=== PATIENT | female | born 1995 | race Hispanic/Latino ===

== ENCOUNTER 2017-11-24 12:27 | Emergency (ER) | payer MEDICAID, OTHER ==
[2017-11-24 13:22] LABS: BASOPHILS % (AUTO) 0.2 % (0.0-5.0); EOSINOPHILS % (AUTO) 6.7 % (0.0-8.0); LYMPHOCYTES % (AUTO) 22.4 % (21.0-51.0); MEAN CORPUSCULAR HEMOGLOBIN 28.7 pg (27.0-33.0); MEAN CORPUSCULAR HGB CONC 34.4 g/dL (32.0-36.0); MEAN CORPUSCULAR VOLUME 83.4 fL (80-100); MONOCYTES % (AUTO) 4.7 % (3.0-13.0); PLATELET COUNT (AUTO) 352 K/uL (130-400); RED BLOOD CELL COUNT(AUTO) 4.44 MIL/uL (4.00-5.50); RED CELL DISTRIBUTION WIDTH 13.8 % (11.0-15.5); WHITE BLOOD COUNT (AUTO) 7.9 K/uL (4.8-10.8)
[2017-11-24 13:29] LABS: CREATININE 0.6 mg/dL (0.5-1.5); POTASSIUM 3.7 mmol/L (3.5-5.1)
[2017-11-24 14:08] LABS: APPEARANCE,URINE Clear (CLEAR); BILIRUBIN,URINE Negative (NEGATIVE); COLOR,URINE Yellow (YELLOW); GLUCOSE, URINE (UA) Negative (NEGATIVE); KETONES,URINE Negative (NEGATIVE); LEUKOCYTE ESTERASE ,URINE Small (NEGATIVE); NITRATE,URINE Negative (NEGATIVE); OCCULT BLOOD,URINE Large (NEGATIVE); PROTEIN,URINE Negative (NEGATIVE)
[2017-11-24 14:20] LABS: BACTERIA,URINE Rare /HPF (None Seen); RENAL EPITHELIAL CELLS,URINE Few /HPF (None Seen); TRANSITIONAL EPI CELLS,URINE Few /HPF (None Seen); WBC,URINE 0-1 /HPF (0-1)
== END 2017-11-24 15:33 | disposition home or self-care (01) ==
LOC: EDH 12:27
DX: O02.0 Blighted ovum and nonhydatidiform mole (principal); Z3A.01 Less than 8 weeks gestation of pregnancy; Z87.891 Personal history of nicotine dependence
CPT/HCPCS: 36415; 76801; 80048; 81001; 84702; 85025; 86900; 86901

== ENCOUNTER 2017-11-27 05:35 | Emergency (ER) | payer MEDICAID, OTHER ==
[2017-11-27] MEDS ORDERED: ACETAMINOPHEN EXTRA STRENGTH 500 MG TABLET ONE (06:27)
[2017-11-27 07:10] LABS: BASOPHILS % (AUTO) 0.1 % (0.0-5.0); EOSINOPHILS % (AUTO) 1.4 % (0.0-8.0); HEMATOCRIT 36.6 % (36-48); LYMPHOCYTES % (AUTO) 4.3 % (21.0-51.0); MEAN CORPUSCULAR HEMOGLOBIN 28.2 pg (27.0-33.0); MEAN CORPUSCULAR HGB CONC 33.8 g/dL (32.0-36.0); MEAN CORPUSCULAR VOLUME 83.4 fL (80-100); MONOCYTES % (AUTO) 3.5 % (3.0-13.0); NEUTROPHILS % (AUTO) 90.7 % (40.0-77.0); PLATELET COUNT (AUTO) 344 K/uL (130-400); RED BLOOD CELL COUNT(AUTO) 4.39 MIL/uL (4.00-5.50); RED CELL DISTRIBUTION WIDTH 13.7 % (11.0-15.5); WHITE BLOOD COUNT (AUTO) 12.7 K/uL (4.8-10.8)
[2017-11-27 07:23] LABS: APPEARANCE,URINE CLEAR (CLEAR); BILIRUBIN,URINE NEGATIVE (NEGATIVE); COLOR,URINE YELLOW (YELLOW); GLUCOSE, URINE (UA) NEGATIVE (NEGATIVE); KETONES,URINE NEGATIVE (NEGATIVE); LEUKOCYTE ESTERASE ,URINE NEGATIVE (NEGATIVE); NITRATE,URINE NEGATIVE (NEGATIVE); OCCULT BLOOD,URINE LARGE (NEGATIVE); PH,URINE >=9.0 (5.0-8.0); PROTEIN,URINE TRACE (NEGATIVE)
[2017-11-27 08:05] LABS: BACTERIA,URINE Rare /HPF (None Seen); SQUAMOUS EPITHELIAL CELL,UR Rare /HPF (0-2); WBC,URINE 0-1 /HPF (0-1)
== END 2017-11-27 08:30 | disposition home or self-care (01) ==
LOC: EDH 05:35
DX: O03.9 Complete or unspecified spontaneous abortion without complication (principal); M54.5 Low back pain; Z3A.01 Less than 8 weeks gestation of pregnancy
CPT/HCPCS: 36415; 76801; 81001; 84702; 85025

== ENCOUNTER 2018-02-23 21:59 | Emergency (ER) | payer MEDICAID, OTHER ==
[2018-02-23] MEDS ORDERED: LIDOCAINE HCL-MPF 1% 2ML VIAL ONE (22:41)
[2018-02-23] MEDS ORDERED: DEXAMETHASONE SOD PHOSPHATE 10MG/ML 1ML VIAL ONE (22:41)
[2018-02-23] MEDS ORDERED: CEFTRIAXONE SODIUM 1 GM ONE (22:42)
[2018-02-23 23:03] LABS: APPEARANCE,URINE Turbid (CLEAR); BILIRUBIN,URINE Small (NEGATIVE); COLOR,URINE Dark Yellow (YELLOW); GLUCOSE, URINE (UA) Negative (NEGATIVE); KETONES,URINE 15 mg/dL (NEGATIVE); LEUKOCYTE ESTERASE ,URINE Large (NEGATIVE); NITRATE,URINE Negative (NEGATIVE); OCCULT BLOOD,URINE Trace (NEGATIVE); PROTEIN,URINE POS 2+ (NEGATIVE)
[2018-02-23 23:05] LABS: HCG,QUAL RESULT NEGATIVE (NEGATIVE)
[2018-02-23 23:11] LABS: BACTERIA,URINE Moderate /HPF (None Seen); MUCUS,URINE Few LPF (None Seen); SQUAMOUS EPITHELIAL CELL,UR Few /HPF (0-2); WBC,URINE TNTC /HPF (0-1)
== END 2018-02-23 23:32 | disposition home or self-care (01) ==
LOC: EDH 21:59
DX: J02.0 Streptococcal pharyngitis (principal); N39.0 Urinary tract infection, site not specified; R50.81 Fever presenting with conditions classified elsewhere
CPT/HCPCS: 81001; 81025; 96372 ×2; 99284; J0696; J1100; J3490

== ENCOUNTER 2019-05-24 03:50 | Inpatient (IN) | payer MEDICAID | END 2019-05-25 16:45 | disposition home or self-care (01) | LOC: EDH 03:50 → LDH 04:13 → WSH 15:35 ==

== ENCOUNTER 2020-07-20 14:44 | Emergency (ER) | payer MEDICAID ==
[2020-07-20 15:16] LABS: BASOPHILS % (AUTO) 0.4 % (0.0-5.0); EOSINOPHILS % (AUTO) 5.4 % (0.0-8.0); HEMATOCRIT 39.3 % (36-48); LYMPHOCYTES % (AUTO) 30.2 % (21.0-51.0); MEAN CORPUSCULAR HEMOGLOBIN 28.2 pg (27.0-33.0); MEAN CORPUSCULAR HGB CONC 33.3 g/dL (32.0-36.0); MEAN CORPUSCULAR VOLUME 84.5 fL (79-99); MONOCYTES % (AUTO) 5.2 % (3.0-13.0); NEUTROPHILS % (AUTO) 58.7 % (40.0-77.0); PLATELET COUNT (AUTO) 365 K/uL (130-400); RED BLOOD CELL COUNT(AUTO) 4.65 MIL/uL (4.00-5.50); RED CELL DISTRIBUTION WIDTH 12.6 % (11.0-15.5); WHITE BLOOD COUNT (AUTO) 7.6 K/uL (4.8-10.8)
[2020-07-20 15:22] LABS: APPEARANCE,URINE Clear (CLEAR); BILIRUBIN,URINE Negative (NEGATIVE); COLOR,URINE Yellow (YELLOW); GLUCOSE, URINE (UA) Negative (NEGATIVE); KETONES,URINE Negative (NEGATIVE); LEUKOCYTE ESTERASE ,URINE Negative (NEGATIVE); NITRATE,URINE Negative (NEGATIVE); OCCULT BLOOD,URINE Negative (NEGATIVE); PH,URINE 5.5 (5.0-8.0); PROTEIN,URINE Negative (NEGATIVE)
[2020-07-20 15:24] LABS: HCG,QUAL RESULT NEGATIVE (NEGATIVE)
[2020-07-20 15:24] LABS: CREATININE 0.7 mg/dL (0.5-1.5); POTASSIUM 3.2 mmol/L (3.5-5.1)
[2020-07-20 15:25] LABS: INR 0.88 (0.85-1.15); PARTIAL THROMBOPLASTIN TIME 29.1 SEC (26.3-35.5); PROTHROMBIN TIME 9.5 SEC (9.6-11.6)
[2020-07-20 15:27] LABS: AMPHET/METH SCREEN,URINE NEGATIVE (NEGATIVE); BARBITURATE SCREEN, URINE NEGATIVE (NEGATIVE); BENZODIAZEPINES SCREEN,URINE NEGATIVE (NEGATIVE); CANNABINOID SCREEN,URINE NEGATIVE (NEGATIVE); COCAINE SCREEN,URINE NEGATIVE (NEGATIVE); OPIATE SCREEN,URINE NEGATIVE (NEGATIVE); PHENCYCLIDINE SCREEN,URINE NEGATIVE (NEGATIVE)
[2020-07-20 15:29] LABS: ALBUMIN 3.7 g/dL (3.5-5.0); BILIRUBIN,TOTAL 0.2 mg/dL (0.2-1.0); TOTAL PROTEIN, SERUM 7.8 g/dL (6.0-8.3)
[2020-07-20] MEDS ORDERED: ALPRAZOLAM 0.25 MG TABLET ONE (16:00)
[2020-07-20] MEDS ORDERED: ASPIRIN 325 MG TABLET ONE (16:04)
== END 2020-07-20 16:38 | disposition home or self-care (01) ==
LOC: EDH 14:44
DX: F41.9 Anxiety disorder, unspecified (principal); R07.89 Other chest pain; Z87.891 Personal history of nicotine dependence
CPT/HCPCS: 36415; 71045; 80053; 80305; 81003; 81025; 84484; 85025; 85610; 85730; 93005

== ENCOUNTER 2020-08-06 10:18 | Inpatient (IN) | payer MEDICAID ==
[~2020-08-06] VITALS: Ht 157.5 cm; Wt 74.8 kg
[2020-08-06] MEDS ORDERED: AMPICILLIN SODIUM/SULBACTAM NA 1.5GM VIAL ONE (11:00)
[2020-08-06 11:13] LABS: BASOPHILS % (AUTO) 0.5 % (0.0-5.0); HEMATOCRIT 40.1 % (36-48); LYMPHOCYTES % (AUTO) 25.1 % (21.0-51.0); MEAN CORPUSCULAR HEMOGLOBIN 28.6 pg (27.0-33.0); MEAN CORPUSCULAR HGB CONC 33.7 g/dL (32.0-36.0); MONOCYTES % (AUTO) 4.6 % (3.0-13.0); NEUTROPHILS % (AUTO) 63.6 % (40.0-77.0); PLATELET COUNT (AUTO) 353 K/uL (130-400); RED BLOOD CELL COUNT(AUTO) 4.72 MIL/uL (4.00-5.50); RED CELL DISTRIBUTION WIDTH 12.5 % (11.0-15.5); WHITE BLOOD COUNT (AUTO) 8.2 K/uL (4.8-10.8)
[2020-08-06 11:26] LABS: CREATININE 0.7 mg/dL (0.5-1.5); POTASSIUM 3.7 mmol/L (3.5-5.1)
[2020-08-06 12:48] LABS: ERYTHROCYTE SEDIMENTATION RATE 27 MM/HR (0-20)
[2020-08-06] MEDS ORDERED: ACETAMINOPHEN 325 MG TAB PO PRN (13:15)
[2020-08-06] MEDS ORDERED: ZOSYN 3.375GM+NS 50ML 50 ML IV ONE (13:53)
[2020-08-06] MEDS ORDERED: HYDROCODONE/ACETAMINOPHEN 10/325 MG TAB ONE (16:20)
[2020-08-06 16:48] LABS: APPEARANCE,URINE Clear (CLEAR); BILIRUBIN,URINE Negative (NEGATIVE); COLOR,URINE Yellow (YELLOW); GLUCOSE, URINE (UA) Negative (NEGATIVE); KETONES,URINE Negative (NEGATIVE); LEUKOCYTE ESTERASE ,URINE Negative (NEGATIVE); NITRATE,URINE Negative (NEGATIVE); OCCULT BLOOD,URINE Negative (NEGATIVE); PROTEIN,URINE Negative (NEGATIVE)
[2020-08-06 16:52] LABS: HCG,QUAL RESULT NEGATIVE (NEGATIVE)
[2020-08-06] MEDS: ZOSYN 3.375GM+NS 50ML 50 ML IV SCH ×2 (17:00→20:56)
--- NOTE | 2020-08-06 17:00 | NUR ---
REPORT RECEIVED FROM DONNIE DALE NURSE AND PATIENT CARE TRANSFEREED AT THIS TIME. PATIENT STABLE.
[2020-08-06 17:14] VITALS: BP 115/81
[2020-08-06] MEDS ORDERED: NORE-109 PO (20:14)
[2020-08-06 20:20] VITALS: BP 119/84
[2020-08-06] MEDS: ONDANSETRON HCL 4 MG/2 ML VIAL IV PRN (20:55)
[2020-08-06] MEDS: FAMOTIDINE 20MG TAB 20 MG TAB PO SCH (20:56)
[2020-08-06] MEDS: DEXTROSE 5%-LACTATED RINGERS 1,000 ML IV SCH (23:15)
[2020-08-07] VITALS (7 sets, daily range): BP systolic 98–121; BP diastolic 59–77
--- NOTE | 2020-08-07 00:10 | NUR ---
PT INSTRUCTED OF NPO STATUS, ACKNOWLEDGES UNDERSTANDING Addendum: 08/07/20 at 0219 by THOMAS WALKER LVN Amended: Links added.
[2020-08-07 04:55] LABS: BASOPHILS % (AUTO) 0.5 % (0.0-5.0); EOSINOPHILS % (AUTO) 6.2 % (0.0-8.0); LYMPHOCYTES % (AUTO) 35.5 % (21.0-51.0); MEAN CORPUSCULAR HEMOGLOBIN 28.3 pg (27.0-33.0); MEAN CORPUSCULAR HGB CONC 33.4 g/dL (32.0-36.0); MEAN CORPUSCULAR VOLUME 84.7 fL (79-99); MONOCYTES % (AUTO) 4.8 % (3.0-13.0); NEUTROPHILS % (AUTO) 52.7 % (40.0-77.0); PLATELET COUNT (AUTO) 312 K/uL (130-400); RED BLOOD CELL COUNT(AUTO) 4.13 MIL/uL (4.00-5.50); RED CELL DISTRIBUTION WIDTH 12.4 % (11.0-15.5); WHITE BLOOD COUNT (AUTO) 6.3 K/uL (4.8-10.8)
[2020-08-07 05:15] LABS: INR 0.9 (0.85-1.15); PROTHROMBIN TIME 9.8 SEC (9.6-11.6)
[2020-08-07 05:19] LABS: ALBUMIN 3.1 g/dL (3.5-5.0); BILIRUBIN,TOTAL 0.4 mg/dL (0.2-1.0); CREATININE 0.7 mg/dL (0.5-1.5); CRP QUANTITATIVE 23.7 mg/L (0.00-9.0); POTASSIUM 3.5 mmol/L (3.5-5.1); TOTAL PROTEIN, SERUM 6.5 g/dL (6.0-8.3)
[2020-08-07] MEDS: ZOSYN 3.375GM+NS 50ML 50 ML IV SCH ×3 (05:45→19:52)
--- NOTE | 2020-08-07 06:40 | NUR ---
TRANSFER REPORT GIVEN TO SUKHDEV LEWIS RN, PT TRANSFERED VIA W/C BY TERESITA MARVIN INCOME TAX PREPARER, PT ALERT ORIENTED, NO CONCERNS VOICED Addendum: 08/07/20 at 0724 by THOMAS WALKER LVN Amended: Links added.
--- NOTE | 2020-08-07 07:30 | NUR ---
SUICIDE RISK ASSESSMENT ASKED PATIENT ABOUT HX OF SUICIDAL THOUGHTS AND POSSIBLE CURRENT SUICIDAL IDEATION. PATIENT STATED "THAT [HISTORY OF SUICIDAL THOUGHTS] WAS WHEN I WAS IN HIGH SCHOOL, BUT NOT ANYMORE." PATIENT WAS SMILING SHE SPOKE TO ME. I RESPONDED AND CLARIFIED "SO, YOU HAVE HAD NO RECENT THOUGHTS OF WANTING TO COMMIT SUICIDE OR HURT YOURSELF?" AND PATIENT REPLIED "NO I HAVEN'T."
[2020-08-07] MEDS: FAMOTIDINE 20MG TAB 20 MG TAB PO SCH ×2 (09:00→19:52)
[2020-08-07] MEDS: HYDROCODONE/ACETAMINOPHEN 5/325 MG TAB PO PRN ×2 (11:02→19:52)
[2020-08-07] MEDS: DEXTROSE 5%-LACTATED RINGERS 1,000 ML IV SCH (15:37)
--- NOTE | 2020-08-07 17:50 | NUR ---
MET WITH PATIENT AT BEDSIDE FOR DC PLANNING. STATES LIVES WITH BOYFRIEND AND CHILDREN, IS A STUDENT AT THIS [employer], IS INDEPENDENT, DRIVES, NO DME OR SERVICES. STATES SHE DOES NOT THINK SHE HAD THE INSURANCE THAT IS LISTED FOR HER AND DOES NOT HAVE A PCP AT THIS TIME STATES LAST TIME SHE SAW AN MD WAS POST CHECK UP . BABY IS 14 MONTHS OLD. DC PLAN IS HOME WITH FAMILY , BERONICA ROTH TO PROVIDE TRANSPORT Addendum: 08/07/20 at 5844 by WILIAM HANSON RN CM Amended: Links added.
[2020-08-07] MEDS: LACTULOSE 20 GM/30 ML UDCUP PO PRN (19:55)
[2020-08-08] VITALS (30 sets, daily range): BP systolic 95–150; BP diastolic 53–94
[2020-08-08] MEDS: ZOSYN 3.375GM+NS 50ML 50 ML IV SCH ×3 (04:41→21:27)
[2020-08-08] MEDS: DEXTROSE 5%-LACTATED RINGERS 1,000 ML IV SCH ×2 (05:30→09:25)
[2020-08-08 05:51] LABS: BASOPHILS % (AUTO) 0.3 % (0.0-5.0); EOSINOPHILS % (AUTO) 5.7 % (0.0-8.0); HEMATOCRIT 36.3 % (36-48); LYMPHOCYTES % (AUTO) 41.1 % (21.0-51.0); MEAN CORPUSCULAR HEMOGLOBIN 28.1 pg (27.0-33.0); MEAN CORPUSCULAR HGB CONC 33.1 g/dL (32.0-36.0); MONOCYTES % (AUTO) 6.4 % (3.0-13.0); NEUTROPHILS % (AUTO) 46.3 % (40.0-77.0); PLATELET COUNT (AUTO) 316 K/uL (130-400); RED BLOOD CELL COUNT(AUTO) 4.27 MIL/uL (4.00-5.50); RED CELL DISTRIBUTION WIDTH 12.3 % (11.0-15.5); WHITE BLOOD COUNT (AUTO) 5.8 K/uL (4.8-10.8)
[2020-08-08 06:04] LABS: BILIRUBIN,TOTAL 0.3 mg/dL (0.2-1.0); CREATININE 0.7 mg/dL (0.5-1.5); POTASSIUM 3.5 mmol/L (3.5-5.1); TOTAL PROTEIN, SERUM 6.5 g/dL (6.0-8.3)
[2020-08-08] MEDS: FAMOTIDINE 20MG TAB 20 MG TAB PO SCH ×2 (08:40→21:27)
[2020-08-08] MEDS ORDERED: SUCCINYLCHOLINE 200MG/10ML SYR ONE (10:11)
[2020-08-08] MEDS ORDERED: MIDAZOLAM HCL 1 MG/ML 2ML VIAL ONE (10:11)
[2020-08-08] MEDS ORDERED: PROPOFOL 10 MG/ML 20ML VIAL IV ONE (10:11)
[2020-08-08] MEDS ORDERED: LIDOCAINE PF 2% 5ML ABBOJECT ONE (10:11)
[2020-08-08] MEDS ORDERED: ROCURONIUM 10MG/1ML SYR 10 MG/ML ML ONE (10:12)
[2020-08-08] MEDS ORDERED: DEXAMETHASONE SOD PHOSPHATE 4 MG/ML 1ML VIAL ONE (10:21)
[2020-08-08] MEDS ORDERED: ONDANSETRON HCL 4 MG/2 ML VIAL ONE (10:22)
[2020-08-08] MEDS ORDERED: NEOMY SULF/POLYMYXIN B SULFATE 1 ML AMPUL IR ONE (10:26)
[2020-08-08] MEDS ORDERED: FENTANYL CITRATE PF 50 MCG/1 ML 2ML VIAL ONE (10:28)
[2020-08-08] MEDS ORDERED: BUPIVACAINE/PF 0.25% 30ML VIAL IJ ONE (10:38)
[2020-08-08] MEDS ORDERED: MEPERIDINE-PF 25 MG/ML SYG ONE ×2 (11:14→11:25)
--- NOTE | 2020-08-08 11:40 | NUR ---
PT CONTINUES TO C/O PAIN TO LT INDEX FINGER, [employer] CONTROL WORKER AT BEDSIDE, NERVE BLOCK OFFERED TO PT, PROCEDURE EXPLAINED. AT THIS TIME PT DOES NOT WISH TO HAVE THE BLOCK DONE. EXPLAINED THAT IF SHE DECIDED TO DO BLOCK, WE WOULD HAVE TO CALL FOR CONSENT PT HAS HAD ANESTHESIA TODAY. PT CONT TO STATE THAT SHE DOES NOT WANT BLOCK AT THIS TIME
[2020-08-08] MEDS ORDERED: KETOROLAC TROMETHAMINE 30MG/ML ONE ×2 (11:51→14:39)
[2020-08-08] MEDS ORDERED: KETOROLAC TROMETHAMINE 15MG/ML IV PRN (12:45)
[2020-08-08] MEDS: MORPHINE SULFATE 2 MG/ML 1ML SYG IVP PRN ×3 (12:50→21:38)
[2020-08-08] MEDS: KETOROLAC TROMETHAMINE 30MG/ML IV PRN (14:56)
--- NOTE | 2020-08-08 20:15 | NUR ---
Patient desires to take a bath; Needs provided Left Index finger dressing intact was covered to keep it dry. Plan of care discussed with patient will transfer to [phone] from [phone]. Patient verbalizes understanding.
[2020-08-08] MEDS: LACTULOSE 20 GM/30 ML UDCUP PO PRN (21:35)
[2020-08-09] MEDS: DEXTROSE 5%-LACTATED RINGERS 1,000 ML IV SCH (01:51)
[2020-08-09 04:14] VITALS: BP 119/66
[2020-08-09] MEDS: KETOROLAC TROMETHAMINE 30MG/ML IV PRN ×2 (04:21→12:03)
[2020-08-09] MEDS: ZOSYN 3.375GM+NS 50ML 50 ML IV SCH ×3 (04:31→20:44)
[2020-08-09 05:32] LABS: BASOPHILS % (AUTO) 0.2 % (0.0-5.0); EOSINOPHILS % (AUTO) 0.7 % (0.0-8.0); HEMATOCRIT 33.8 % (36-48); LYMPHOCYTES % (AUTO) 24.7 % (21.0-51.0); MEAN CORPUSCULAR HEMOGLOBIN 28.2 pg (27.0-33.0); MEAN CORPUSCULAR HGB CONC 33.1 g/dL (32.0-36.0); MEAN CORPUSCULAR VOLUME 85.1 fL (79-99); MONOCYTES % (AUTO) 5.9 % (3.0-13.0); NEUTROPHILS % (AUTO) 68.3 % (40.0-77.0); PLATELET COUNT (AUTO) 321 K/uL (130-400); RED BLOOD CELL COUNT(AUTO) 3.97 MIL/uL (4.00-5.50); RED CELL DISTRIBUTION WIDTH 12.1 % (11.0-15.5); WHITE BLOOD COUNT (AUTO) 8.1 K/uL (4.8-10.8)
[2020-08-09 05:53] LABS: ALBUMIN 2.9 g/dL (3.5-5.0); BILIRUBIN,TOTAL 0.2 mg/dL (0.2-1.0); CREATININE 0.7 mg/dL (0.5-1.5); POTASSIUM 3.5 mmol/L (3.5-5.1); TOTAL PROTEIN, SERUM 6.4 g/dL (6.0-8.3)
[2020-08-09 07:47] VITALS: BP 131/59
[2020-08-09] MEDS: TRAMADOL HCL 50 MG TABLET PO PRN ×2 (09:31→16:56)
[2020-08-09] MEDS: FAMOTIDINE 20MG TAB 20 MG TAB PO SCH ×2 (09:32→20:44)
[2020-08-09 12:05] VITALS: BP 135/80
[2020-08-09 16:26] VITALS: BP 133/76
[2020-08-09] MEDS: MORPHINE SULFATE 2 MG/ML 1ML SYG IVP PRN (17:43)
[2020-08-09 20:06] VITALS: BP 146/83
[2020-08-09] MEDS: HYDROMORPHONE HCL 0.5 MG/0.5 ML ML IVP PRN (20:46)
[2020-08-09 23:51] VITALS: BP 129/74
[2020-08-10] VITALS (24 sets, daily range): BP systolic 110–139; BP diastolic 67–90
[2020-08-10] MEDS: KETOROLAC TROMETHAMINE 30MG/ML IV PRN ×3 (01:03→19:00)
[2020-08-10] MEDS: ZOSYN 3.375GM+NS 50ML 50 ML IV SCH ×3 (05:23→20:43)
[2020-08-10] MEDS: HYDROMORPHONE HCL 0.5 MG/0.5 ML ML IVP PRN ×3 (05:30→20:16)
[2020-08-10] MEDS: ONDANSETRON HCL 4 MG/2 ML VIAL IV PRN (06:21)
[2020-08-10 06:34] LABS: BASOPHILS % (AUTO) 0.4 % (0.0-5.0); EOSINOPHILS % (AUTO) 6.1 % (0.0-8.0); HEMATOCRIT 34.6 % (36-48); LYMPHOCYTES % (AUTO) 42.2 % (21.0-51.0); MEAN CORPUSCULAR HEMOGLOBIN 27.8 pg (27.0-33.0); MEAN CORPUSCULAR HGB CONC 32.7 g/dL (32.0-36.0); MONOCYTES % (AUTO) 5.7 % (3.0-13.0); NEUTROPHILS % (AUTO) 45.5 % (40.0-77.0); PLATELET COUNT (AUTO) 287 K/uL (130-400); RED BLOOD CELL COUNT(AUTO) 4.07 MIL/uL (4.00-5.50); RED CELL DISTRIBUTION WIDTH 12.4 % (11.0-15.5); WHITE BLOOD COUNT (AUTO) 7.3 K/uL (4.8-10.8)
[2020-08-10 06:46] LABS: CREATININE 0.8 mg/dL (0.5-1.5); POTASSIUM 3.5 mmol/L (3.5-5.1)
[2020-08-10] MEDS: FAMOTIDINE 20MG TAB 20 MG TAB PO SCH ×2 (09:00→20:15)
[2020-08-10] MEDS: DEXTROSE 5%-LACTATED RINGERS 1,000 ML IV SCH (10:18)
[2020-08-10] MEDS ORDERED: LACTATED RINGERS 1000ML 1,000 ML IV ONE (13:49)
[2020-08-10] MEDS ORDERED: NEOMY SULF/POLYMYXIN B SULFATE 1 ML AMPUL IR ONE (14:18)
[2020-08-10] MEDS ORDERED: BUPIVACAINE/PF 0.25% 30ML VIAL IJ ONE (14:18)
[2020-08-10] MEDS ORDERED: FENTANYL CITRATE PF 50 MCG/1 ML 2ML VIAL ONE (14:23)
[2020-08-10] MEDS ORDERED: PROPOFOL 10 MG/ML 20ML VIAL IV ONE (14:23)
[2020-08-10] MEDS ORDERED: MIDAZOLAM HCL 1 MG/ML 2ML VIAL ONE (14:23)
[2020-08-10] MEDS ORDERED: LIDOCAINE PF 2% 5ML ABBOJECT ONE (14:23)
[2020-08-10] MEDS ORDERED: ONDANSETRON HCL 4 MG/2 ML VIAL ONE (15:20)
[2020-08-10] MEDS ORDERED: DEXAMETHASONE SOD PHOSPHATE 4 MG/ML 1ML VIAL ONE (15:20)
[2020-08-10] MEDS ORDERED: KETOROLAC TROMETHAMINE 30MG/ML ONE (15:29)
[2020-08-10] MEDS ORDERED: MEPERIDINE-PF 25 MG/ML SYG ONE ×2 (15:53→16:08)
--- NOTE | 2020-08-10 16:50 | NUR ---
PROCEDURE REPORT RECEIVED FROM DONNIE SIDHU (PACU). PATIENT S/P DEBRIDEMENT AND CLOSURE TO LEFT INDEX FINGER BY DR. BETTENCOURT UNDER GENERAL ANESTHESIA. DRESSING DRY AND INTACT. PATIENT STABLE AT THIS TIME.
[2020-08-10] MEDS: LACTULOSE 20 GM/30 ML UDCUP PO PRN (20:15)
[2020-08-11] VITALS: BP 105/54
[2020-08-11] MEDS: DEXTROSE 5%-LACTATED RINGERS 1,000 ML IV SCH (00:05)
[2020-08-11] MEDS: KETOROLAC TROMETHAMINE 30MG/ML IV PRN ×2 (03:55→09:36)
[2020-08-11 04:00] VITALS: BP 112/67
[2020-08-11] MEDS: ZOSYN 3.375GM+NS 50ML 50 ML IV SCH (05:50)
[2020-08-11 08:00] VITALS: BP 126/73
[2020-08-11] MEDS ORDERED: FAMO20TA8 PO (08:11)
[2020-08-11] MEDS ORDERED: AMOX-429 PO (08:11)
[2020-08-11] MEDS ORDERED: IBUP-2077 PO (08:11)
[2020-08-11 08:52] LABS: BASOPHILS % (AUTO) 0.3 % (0.0-5.0); EOSINOPHILS % (AUTO) 1.3 % (0.0-8.0); LYMPHOCYTES % (AUTO) 22.8 % (21.0-51.0); MEAN CORPUSCULAR VOLUME 85.1 fL (79-99); MONOCYTES % (AUTO) 4.1 % (3.0-13.0); NEUTROPHILS % (AUTO) 71.1 % (40.0-77.0); PLATELET COUNT (AUTO) 337 K/uL (130-400); RED BLOOD CELL COUNT(AUTO) 4.35 MIL/uL (4.00-5.50); RED CELL DISTRIBUTION WIDTH 12.1 % (11.0-15.5); WHITE BLOOD COUNT (AUTO) 7.8 K/uL (4.8-10.8)
[2020-08-11] MEDS: FAMOTIDINE 20MG TAB 20 MG TAB PO SCH (09:00)
[2020-08-11 10:04] LABS: ERYTHROCYTE SEDIMENTATION RATE 22 MM/HR (0-20)
--- NOTE | 2020-08-11 10:40 | NUR ---
DISCHARGE PATIENT GIVEN DISCHARGE INSTRUCTIONS VIA TEACH BACK. 20G PIV TO RIGHT HAND DISCONTINUED, TIP INTACT. RX FOR PEPCID, AUGMENTIN 500MG PO BID X 10 DAYS AND IBUPROFEN. PATIENT TO FOLLOW UP WITH DR. BETTENCOURT FOR FURTHER TREATMENT. KEEP DRESSING CLEAN AND DRY. PATIENT STABLE AT THIS TIME. PATIENT WALKED TO [facility] BY SUPA COVARRUBIAS FOR DISCHARGE.
--- NOTE | 2020-08-13 10:03 | NUR ---
Transitional Care - Post Discharge Note Spoke with patient at number listed. As per patient, she is doing well. She mentioned she was in some pain to the site, but she was currently en route to see Dr Blanca. She states she is taking discharge medications as ordered. I encouraged Mrs Redd Howell to inform Dr Blanca of her pain when she sees him. She stated she would. Addendum: 08/13/20 at 1006 by DARIEN BORREGO Amended: Links added.
== END 2020-08-11 10:45 | disposition home or self-care (01) | DRG 364 ==
LOC: EDH 10:18 → EDHIP 10:19 → WSH 17:10 → 3AH 08-07 06:57 → 3BH 08-08 20:22
PROVIDERS: ADMIT Internal Medicine; ATTEND Internal Medicine
PROC: 0JBK0ZZ Excision of Left Hand Subcutaneous Tissue and Fascia, Open Approach (ICD-10-PCS; principal; 2020-08-08 10:30)
PROC: 0LB80ZZ Excision of Left Hand Tendon, Open Approach (ICD-10-PCS; 2020-08-10)
DX: S61.231A Puncture wound without foreign body of left index finger without damage to nail, initial encounter (principal); L02.512 Cutaneous abscess of left hand; F41.9 Anxiety disorder, unspecified; E66.9 Obesity, unspecified; L03.012 Cellulitis of left finger; L03.116 Cellulitis of left lower limb; K21.9 Gastro-esophageal reflux disease without esophagitis; Z20.828 Contact with and (suspected) exposure to other viral communicable diseases; Z68.30 Body mass index [BMI] 30.0-30.9, adult; W54.0XXA Bitten by dog, initial encounter; Y93.89 Activity, other specified; Y92.89 Other specified places as the place of occurrence of the external cause; Y99.8 Other external cause status; M79.642 Pain in left hand
CPT/HCPCS: 36415; 73130; 80048; 80053; 81003; 81025; 83605; 84145; 85025; 85610; 85651; 86140; 87040; 87070; 87076; 87205; 87426; A4344; A4565; A4606; G0378; J0295; J0330; J1100; J1170; J1885; J2001; J2175; J2250; J2405; J2543; J2704; J3010; J3490; J7120; U0003

== ENCOUNTER 2020-08-29 10:33 | Emergency (ER) | payer MEDICAID ==
[~2020-08-29 10:33] MED LIST: AMOX-429 PO; FAMO20TA8 PO; IBUP-2077 PO; NORE-109 PO
== END 2020-08-29 11:11 | disposition home or self-care (01) ==
LOC: EDH 10:33
DX: Z48.817 Encounter for surgical aftercare following surgery on the skin and subcutaneous tissue (principal); F41.9 Anxiety disorder, unspecified
CPT/HCPCS: 99281

== ENCOUNTER 2021-06-07 12:10 | Observation (INO) | payer MEDICAID ==
[~2021-06-07] VITALS: Ht 157.5 cm; Wt 77.6 kg
[2021-06-07 12:11] VITALS: BP 115/63
[2021-06-07 12:12] VITALS: BP 115/63
[2021-06-07 13:07] LABS: APPEARANCE,URINE Clear (CLEAR); BILIRUBIN,URINE Negative (NEGATIVE); COLOR,URINE Yellow (YELLOW); GLUCOSE, URINE (UA) Negative (NEGATIVE); KETONES,URINE Negative (NEGATIVE); LEUKOCYTE ESTERASE ,URINE Moderate (NEGATIVE); NITRATE,URINE Negative (NEGATIVE); OCCULT BLOOD,URINE Negative (NEGATIVE); PROTEIN,URINE Negative (NEGATIVE); UROBILINOGEN,URINE 0.2 mg/dL (0.2-1.0)
[2021-06-07 13:09] LABS: RBC,URINE 0-1 /HPF (0-1)
[2021-06-07 13:10] LABS: BACTERIA,URINE Few /HPF (None Seen)
[2021-06-07 13:11] LABS: SQUAMOUS EPITHELIAL CELL,UR Few /HPF (0-2)
== END 2021-06-07 13:55 | disposition home or self-care (01) ==
LOC: EDH 12:10 → LDH 12:26
PROVIDERS: ADMIT Specialist; ATTEND Specialist
DX: O21.2 Late vomiting of pregnancy (principal); O62.9 Abnormality of forces of labor, unspecified; O26.893 Other specified pregnancy related conditions, third trimester; R52 Pain, unspecified; Z3A.31 31 weeks gestation of pregnancy
CPT/HCPCS: 59025; 81001; 87088; G0378; G0379

== ENCOUNTER 2021-07-17 12:30 | Observation (INO) | payer MEDICAID ==
[~2021-07-17] VITALS: Ht 157.5 cm; Wt 78.9 kg
[2021-07-17 12:32] VITALS: BP 101/62
== END 2021-07-17 13:47 | disposition home or self-care (01) ==
LOC: EDH 12:30 → LDH 12:31
PROVIDERS: ADMIT Specialist; ATTEND Specialist
DX: O42.92 Full-term premature rupture of membranes, unspecified as to length of time between rupture and onset of labor (principal); Z3A.37 37 weeks gestation of pregnancy
CPT/HCPCS: G0378

== ENCOUNTER 2021-07-23 10:00 | Observation (INO) | payer MEDICAID ==
[~2021-07-23] VITALS: Ht 157.5 cm; Wt 78.9 kg
[2021-07-23 10:02] VITALS: BP 114/62
[2021-07-23 10:47] LABS: APPEARANCE,URINE Cloudy (CLEAR); BILIRUBIN,URINE Negative (NEGATIVE); COLOR,URINE Yellow (YELLOW); GLUCOSE, URINE (UA) Negative (NEGATIVE); KETONES,URINE Negative (NEGATIVE); LEUKOCYTE ESTERASE ,URINE Small (NEGATIVE); NITRATE,URINE Negative (NEGATIVE); OCCULT BLOOD,URINE Negative (NEGATIVE); PROTEIN,URINE Negative (NEGATIVE); UROBILINOGEN,URINE 0.2 mg/dL (0.2-1.0)
[2021-07-23 10:55] LABS: BACTERIA,URINE Few /HPF (None Seen); RBC,URINE 0-1 /HPF (0-1); SQUAMOUS EPITHELIAL CELL,UR Rare /HPF (0-2); WBC,URINE 0-1 /HPF (0-1)
[2021-07-23] MEDS ORDERED: TERBUTALINE SULFATE VIAL 1MG/ML SQ SCH (12:00)
[2021-07-23] MEDS: LACTATED RINGERS 1000ML 1,000 ML IV SCH ×2 (12:20→13:20)
[2021-07-23] MEDS ORDERED: ACETAMINOPHEN 325 MG TAB PO SCH (13:00)
== END 2021-07-23 16:10 | disposition home or self-care (01) ==
LOC: EDSTATUS 10:20 → LDH 10:25
PROVIDERS: ADMIT Specialist; ATTEND Specialist
DX: O36.8130 Decreased fetal movements, third trimester, not applicable or unspecified (principal); O26.893 Other specified pregnancy related conditions, third trimester; M79.10 Myalgia, unspecified site; R68.83 Chills (without fever); Z3A.37 37 weeks gestation of pregnancy
CPT/HCPCS: 59025; 76819; 81001; 87635; 87804 ×2; 96360; 96361; 96372; G0378 ×6; G0379; J3105; J7120 ×3

== ENCOUNTER 2021-07-28 10:38 | Inpatient (IN) | payer MEDICAID ==
[~2021-07-28] VITALS: Ht 157.5 cm; Wt 82.1 kg
[2021-07-28 11:22] LABS: APPEARANCE,URINE Clear (CLEAR); BILIRUBIN,URINE Negative (NEGATIVE); COLOR,URINE Yellow (YELLOW); GLUCOSE, URINE (UA) Negative (NEGATIVE); KETONES,URINE Negative (NEGATIVE); LEUKOCYTE ESTERASE ,URINE Trace (NEGATIVE); NITRATE,URINE Negative (NEGATIVE); OCCULT BLOOD,URINE Negative (NEGATIVE); PH,URINE 7.5 (5.0-8.0); PROTEIN,URINE Negative (NEGATIVE)
[2021-07-28] MEDS ORDERED: LACTATED RINGERS 1000ML 1,000 ML IV PRN (11:30)
[2021-07-28] MEDS ORDERED: OXYTOCIN-LR 20 UNITS/1000 ML 1,000 ML IV SCH ×2 (11:30→14:00)
[2021-07-28] MEDS ORDERED: AMPICILLIN 2GM+NS 100ML 100 ML IV SCH (11:30)
[2021-07-28 11:40] LABS: HEMATOCRIT 32.2 % (36-48); MEAN CORPUSCULAR HEMOGLOBIN 28.8 pg (27.0-33.0); MEAN CORPUSCULAR HGB CONC 32.6 g/dL (32.0-36.0); MEAN CORPUSCULAR VOLUME 88.5 fL (79-99); RED BLOOD CELL COUNT(AUTO) 3.64 MIL/uL (4.00-5.50); WHITE BLOOD COUNT (AUTO) 10.1 K/uL (4.8-10.8)
[2021-07-28 11:41] LABS: BACTERIA,URINE Few /HPF (None Seen); RBC,URINE 0-1 /HPF (0-1); WBC,URINE 0-1 /HPF (0-1)
[2021-07-28] MEDS ORDERED: PROMETHAZINE HCL 25 MG/ML 1ML AMPULE IM PRN (14:00)
[2021-07-28] MEDS ORDERED: MEPERIDINE-PF 50 MG/ML SYG IVP PRN (14:00)
[2021-07-28] MEDS: AMPICILLIN 1GM+NS 50ML 50 ML IV SCH ×2 (15:28→19:56)
[2021-07-28] MEDS ORDERED: EPHEDRINE SULFATE 50 MG/ML AMPULE IVP PRN (18:00)
[2021-07-28] MEDS ORDERED: LACTATED RINGERS 500 ML 500 ML IV PRN (18:00)
[2021-07-28] MEDS ORDERED: NALOXONE HCL 0.4 MG/1 ML ML IV PRN (18:00)
[2021-07-28] MEDS ORDERED: ROPIVACAINE 0.2% 100ML VIAL 100 ML EP SCH (18:00)
[2021-07-28] MEDS ORDERED: LIDOCAINE HCL 1% 20 ML VIAL ONE (21:30)
[2021-07-28] MEDS ORDERED: LANOLIN 30GM OINTMENT TP PRN (22:30)
[2021-07-28] MEDS ORDERED: ACETAMINOPHEN 325 MG TAB PO PRN (22:30)
[2021-07-28] MEDS ORDERED: WITCH HAZEL 1 PAD TP PRN (22:30)
[2021-07-28] MEDS ORDERED: BENZOCAINE/LANOLIN/ALOE VERA 60 ML AEROSOL TP PRN (22:30)
[2021-07-28] MEDS ORDERED: DIPH,PERTUSS(ACELL),TET VAC/PF 0.5 ML VIAL IM PRN (22:30)
[2021-07-28] MEDS ORDERED: ACETAMINOPHEN WITH CODEINE 1 TAB TAB PO PRN (22:30)
[2021-07-28] MEDS: IBUPROFEN 600 MG TABLET PO PRN (22:37)
[2021-07-28 23:49] VITALS: BP 121/70
[2021-07-29] MEDS ORDERED: PREN-196 PO (00:20)
[2021-07-29 03:46] VITALS: BP 110/74
[2021-07-29] MEDS: IBUPROFEN 600 MG TABLET PO PRN ×2 (05:01→16:45)
[2021-07-29 07:21] VITALS: BP 100/53
[2021-07-29 08:14] LABS: HEPATITIS Bs ANTIGEN SCREEN P Negative (Negative)
[2021-07-29] MEDS: DOCUSATE SODIUM 100 MG CAP PO SCH ×2 (09:39→20:19)
[2021-07-29 11:42] VITALS: BP 95/61
[2021-07-29 16:37] VITALS: BP 112/68
[2021-07-29 19:20] VITALS: BP 111/76
[2021-07-30 00:18] VITALS: BP 106/63
[2021-07-30] MEDS: IBUPROFEN 600 MG TABLET PO PRN ×2 (02:24→08:50)
[2021-07-30 03:26] VITALS: BP 104/59
[2021-07-30 07:24] VITALS: BP 103/57
[2021-07-30] MEDS: DOCUSATE SODIUM 100 MG CAP PO SCH (08:49)
[2021-07-30 12:18] VITALS: BP 130/55
[2021-07-30] MEDS ORDERED: IBUP-2077 PO (12:18)
== END 2021-07-30 12:40 | disposition home or self-care (01) | DRG 560 ==
LOC: LDH 10:38 → WSH 23:46
PROVIDERS: ADMIT Specialist; ATTEND Specialist
PROC: 10E0XZZ Delivery of Products of Conception, External Approach (ICD-10-PCS; principal; 2021-07-28)
PROC: 0HQ9XZZ Repair Perineum Skin, External Approach (ICD-10-PCS; 2021-07-28)
PROC: 3E0234Z Introduction of Serum, Toxoid and Vaccine into Muscle, Percutaneous Approach (ICD-10-PCS; 2021-07-28)
DX: O99.824 Streptococcus B carrier state complicating childbirth (principal); Z23 Encounter for immunization; Z37.0 Single live birth; O70.0 First degree perineal laceration during delivery; Z3A.38 38 weeks gestation of pregnancy
CPT/HCPCS: 36415; 81001; 85027; 86156; 86592; 86850; 86870; 86900; 86901; 87340; 90715; A4351; G0378; J0290; J2175; J2550; J2590; J7120

== ENCOUNTER 2021-11-24 08:21 | Day surgery (SDC) | payer MEDICAID ==
[2021-11-19 11:39] LABS: BASOPHILS % (AUTO) 0.8 % (0.0-5.0); EOSINOPHILS % (AUTO) 10.8 % (0.0-8.0); LYMPHOCYTES % (AUTO) 39.8 % (21.0-51.0); MEAN CORPUSCULAR HEMOGLOBIN 28.6 pg (27.0-33.0); MEAN CORPUSCULAR HGB CONC 32.6 g/dL (32.0-36.0); MEAN CORPUSCULAR VOLUME 87.8 fL (79-99); MONOCYTES % (AUTO) 8.2 % (3.0-13.0); NEUTROPHILS % (AUTO) 40.2 % (40.0-77.0); PLATELET COUNT (AUTO) 317 K/uL (130-400); RED BLOOD CELL COUNT(AUTO) 4.33 MIL/uL (4.00-5.50); RED CELL DISTRIBUTION WIDTH 13.9 % (11.0-15.5)
[2021-11-23 09:07] VITALS: BP 112/79
[~2021-11-24] VITALS: Ht 157.5 cm; Wt 73.5 kg
[2021-11-24] VITALS (14 sets, daily range): BP systolic 106–132; BP diastolic 43–84
[~2021-11-24 08:21] MED LIST changes: -AMOX-429 PO; -FAMO20TA8 PO; -IBUP-2077 PO; +LACTATED RINGERS 1000ML 1,000 ML IV SCH; -NORE-109 PO; +SERT50TA PO
[2021-11-24] MEDS ORDERED: SUCCINYLCHOLINE CHLORIDE 20 MG/ML 10 ML VIAL ONE (10:02)
[2021-11-24] MEDS ORDERED: LIDOCAINE PF 100MG/5ML (2%) SYRINGE 5ML ONE ×2 (10:02→10:03)
[2021-11-24] MEDS ORDERED: MIDAZOLAM HCL 1 MG/ML 2ML VIAL ONE (10:02)
[2021-11-24] MEDS ORDERED: PROPOFOL 10 MG/ML 20ML VIAL IV ONE (10:03)
[2021-11-24] MEDS ORDERED: ROCURONIUM 10MG/1ML SYR 10 MG/ML ML ONE (10:03)
[2021-11-24] MEDS ORDERED: FENTANYL CITRATE PF 50 MCG/1 ML 2ML VIAL ONE ×2 (10:03→10:26)
[2021-11-24] MEDS ORDERED: ONDANSETRON 4MG INJ ONE ×2 (10:12→12:28)
[2021-11-24] MEDS ORDERED: MEPERIDINE-PF 25 MG/ML SYG ONE ×2 (11:10→11:20)
== END 2021-11-24 12:53 | disposition home or self-care (01) ==
LOC: DAH 08:21
PROVIDERS: ATTEND Specialist
DX: Z30.2 Encounter for sterilization (principal); Z20.822 Contact with and (suspected) exposure to COVID-19; E66.9 Obesity, unspecified; F41.9 Anxiety disorder, unspecified; F32.9 Major depressive disorder, single episode, unspecified; Z79.899 Other long term (current) drug therapy
CPT/HCPCS: 36415 ×2; 58671; 84703; 85025; 86850 ×2; 86900 ×2; 86901 ×2; 87635; A4215 ×2; A4221; A4222; A4223; A4351; A4663; A6260; C1769 ×3; C9803; J0330; J2175 ×2; J2250; J2405 ×2; J3010 ×2; J3490 ×3; J7030; J7120; J2001; J2704

== ENCOUNTER 2021-12-18 00:07 | Emergency (ER) | payer MEDICAID ==
[~2021-12-18] VITALS: Ht 157.5 cm; Wt 70.3 kg
[~2021-12-18 00:07] MED LIST changes: -LACTATED RINGERS 1000ML 1,000 ML IV SCH
[2021-12-18 00:46] LABS: APPEARANCE,URINE Clear (CLEAR); BILIRUBIN,URINE Negative (NEGATIVE); COLOR,URINE Yellow (YELLOW); GLUCOSE, URINE (UA) Negative (NEGATIVE); KETONES,URINE Negative (NEGATIVE); LEUKOCYTE ESTERASE ,URINE Large (NEGATIVE); NITRATE,URINE Negative (NEGATIVE); OCCULT BLOOD,URINE Large (NEGATIVE); PH,URINE 6.5 (5.0-8.0); PROTEIN,URINE Trace mg/dL (NEGATIVE); UROBILINOGEN,URINE 0.2 mg/dL (0.2-1.0)
[2021-12-18 00:47] LABS: HCG,QUAL RESULT NEGATIVE (NEGATIVE)
[2021-12-18 00:57] LABS: BACTERIA,URINE Few /HPF (None Seen); SQUAMOUS EPITHELIAL CELL,UR 0-2 /HPF (0-2)
[2021-12-18] MEDS ORDERED: PHEN-847 PO (01:57)
[2021-12-18] MEDS ORDERED: CEPH500B PO (01:57)
[2021-12-18] MEDS ORDERED: DICY20TA2 PO (01:57)
[2021-12-18] MEDS ORDERED: PHENAZOPYRIDINE HCL 200 MG TABLET PO ONE (02:00)
[2021-12-18] MEDS ORDERED: CEPHALEXIN 500 MG CAPSULE PO ONE (02:00)
[2021-12-18] MEDS ORDERED: DICYCLOMINE HCL 20 MG TAB PO ONE (02:00)
[2021-12-18 02:07] VITALS: BP 124/53
== END 2021-12-18 02:13 | disposition home or self-care (01) ==
LOC: EDH 00:07
DX: N39.0 Urinary tract infection, site not specified (principal); Z79.899 Other long term (current) drug therapy
CPT/HCPCS: 81001; 81025; 87088